=== PATIENT | female | born 1985 | race Two or more races ===

== ENCOUNTER 2025-08-26 09:53 | Outpatient (CLI) | payer MEDICAID ==
[2025-08-26 10:44] LABS: Hematocrit 42.2 % (36.0-46.0); Hemoglobin 14.4 g/dL (12.2-16.2); Mean Corpuscular Hemoglobin 28.0 pg (28.0-32.0); Mean Corpuscular Volume 82.1 fL (80.0-100.0); Nucleated Red Blood Cells % 0.0 %
[2025-08-26 11:04] LABS: Alanine Aminotransferase 39 U/L (7-40); Albumin 4.6 g/dL (3.2-4.8); Alkaline Phosphatase 76 U/L (46-116); BUN/Creatinine Ratio 13.8 (10.0-20.0); Calcium 9.2 mg/dL (8.7-10.4); Carbon Dioxide 28 mmol/L (20-31); Glucose 82 mg/dL (74-106); Potassium 4.5 mmol/L (3.5-5.1); Sodium 140 mmol/L (136-145); Total Protein 7.7 g/dL (5.7-8.2)
[2025-08-26 11:05] LABS: Bilirubin, Total 0.7 mg/dL (0.2-1.0)
[2025-08-26 11:07] LABS: Free T4 (Free Thyroxine) 1.42 ng/dL (0.89-1.76); Thyroid Stimulating Hormone 0.89 uIU/mL (0.55-4.78)
[2025-08-26 11:08] LABS: Follicle Stimulating Hormone 5.61 IU/L (SEE BELOW)
[2025-08-26 11:09] LABS: Beta HCG, Quantitative 1.0 mIU/mL (1.5-4.2); Blood Urea Nitrogen 9 mg/dL (9-23)
[2025-08-26 11:17] LABS: Anion Gap 8 (5-15); Chloride 104 mmol/L (98-107)
== END 2025-08-26 17:00 | disposition home or self-care (01) ==
LOC: LAB 09:53
DX: E28.2 Polycystic ovarian syndrome (principal)
CPT/HCPCS: 36415; 80053; 82626; 82670; 83001; 83002; 83036; 83525; 84146; 84270; 84402; 84403; 84439; 84443; 84702; 85025